=== PATIENT | female | born 2000 | race Caucasian/White ===

== ENCOUNTER 2022-01-14 14:23 | Emergency (ER) | payer BC, SELFPAY ==
[2022-01-14 14:29] VITALS: BP 138/84; PULSE 116; RESP 16; TEMP 37.7; O2SAT 98
--- NOTE | 2022-01-14 14:31 | ED.SKABFB ---
HPI - Skin/Abscess/Foreign Bdy General Chief complaint: Skin/Abscess/Foreign Body Stated complaint: lump under right arm sore throat Time Seen by Provider: 01/14/22 14:31 Source: patient Mode of arrival: ambulatory Limitations: no limitations History of Present Illness HPI narrative: Toro is a transitioning female to male that is complaining of a lump under the right arm in the axilla, headache, sore throat, low-grade temperature, and body aches x2 days. He reports that he has not felt any lumps in his breast and wears a binder to compress his breast. He denies any known exposure to anybody with COVID, flu, or strep. Related Data Home Medications Medication Instructions Recorded Confirmed testosterone cypionate 0.25 mg SUBCUT WEEKLY 01/14/22 01/14/22 Allergies Allergy/AdvReac Type Severity Reaction Status Date / Time No Known Allergies Allergy Verified 01/14/22 14:49 Review of Systems Review of Systems: Pertinent positives per HPI. Patient denies any rash, visual changes, dizziness, cough, runny nose,shortness of breath, chest pain, palpitations, nausea, vomiting, diarrhea, constipation, abdominal pain, or any urinary issues. PMFSH Comments At the time of my signature, I reviewed and agree with the nursing past medical, surgical, social, and family history. There is no relevant family history pertinent to the patient complaint. Exam Narrative: General: Well-developed, well nourished, in no apparent distress Head: Normocephalic, atraumatic Eyes: Pupils equally round and reactive to light bilaterally, EOM intact, sclera and conjunctive clear, no discharge, lids normal Ears: TMs intact and clear, ear canals clear, no drainage, grossly hearing normal. Nose: Nares patent, no discharge, no inflammation, no sinus tenderness. Mouth: Oropharynx without lesions or masses, good dentition, MMM. Oropharynx red with mild tonsillar enlargement Neck: Supple, trachea midline, no enlargement of anterior or posterior cervical nodes, no thyroid masses or goiter palpable. Cardio: Regular rate and rhythm, s1 and s2 normal, no murmur appreciated. Resp: Clear to auscultation bilaterally anteriorly and posteriorly, no rhonchi, rales, wheezing or rubs Lymph: No right axillary lymphadenopathy or mass palpable. Course Course Emergency Course: Portions of this record may have been created with voice recognition software. Level of Care: Express Care Visit Vital Signs Vital signs: Vital signs reviewed MDM - Skin/Abscess/Foreign Bdy MDM Narrative Medical decision making narrative: At the time of exam patient is resting comfortably on the exam table. COVID testing strep testing and influenza testing negative in the clinic. I suspect the patient has a viral syndrome and we discussed supportive measures for this. Recommend follow-up if symptoms persist/worsen, he voiced understanding of discharge instructions and agrees with treatment plan. Differential Diagnosis Differential diagnosis: Likely abscess of skin or subcutaneous tissue and other (Upper respiratory infection, influenza, strep, COVID, cyst) Discharge Plan Discharge Clinical Impression: Viral syndrome Patient Disposition: Home, Self-Care Condition: Stable Instructions: Antibiotic Form Additional Instructions: COVID testing, influenza testing, and strep testing negative in the clinic today. We will send strep for culture Increase fluids and stay well hydrated Tylenol/motrin for pain/fever Flonase and OTC antihistamines as directed Vicks vapor rub to open sinuses Sinus rinses for congestion Cepacol spray, cough drops, throat lozenges, warm tea with honey/lemon, gargle salt water to soothe throat BRAT diet for diarrhea Clear liquids x 24 hours then advance as tolerated for nausea/vomiting May return to the clinic if symptoms worsen Go to the ED if you develop dehydration, weakness, lethargy, shortness of breath, or chest pain. Follow up with penny
== END 2022-01-14 15:16 | disposition home or self-care (01) ==
PROVIDERS: Emergency Provider Nurse Practitioner Family
DX: B34.9 Viral infection, unspecified (principal); Z20.822 Contact with and (suspected) exposure to COVID-19
CPT/HCPCS: 87081; 87426; 87804; 87880; 99203; C9803; G0463

== ENCOUNTER 2024-06-07 15:36 | Emergency (ER) | payer SELFPAY ==
--- NOTE | ~2024-06-07 | XR_ITS ---
XR shoulder RT min 2V Ordering provider: Kahlil May MD History: . Rt. shoulder pain limited ROM, Lifting injury . Comparison: None. FINDINGS: BONES: No acute fracture or dislocation. JOINT SPACES: The acromioclavicular joint is normal. The glenohumeral joint is normal. SOFT TISSUES: Normal. IMPRESSION: No acute osseous abnormality right shoulder. Reviewed, dictated and finalized at location A.
[2024-06-07 15:42] VITALS: BP 139/79; PULSE 62; RESP 18; TEMP 36.9; O2SAT 99
--- NOTE | 2024-06-07 15:57 | ED.GENADULT ---
HPI - General Adult General Chief complaint: Extremity Injury, Upper Stated complaint: SHOULDER INJURY Time Seen by Provider: 06/07/24 15:57 Source: patient Mode of arrival: ambulatory Limitations: no limitations History of Present Illness HPI narrative: patient was at work and lifted the ladder at work 1 hour ago and it got heavy and he felt a pop in his right shoulder and had to drop the latter because of pain in his right shoulder. Now he can not lift it above 90? it hurts at rest to 5 and at movement it hurts a 9/10. Denies any paresthesias pain in his elbow wrist neck or elsewhere. Otherwise he is walking talking seeing and hearing fine without any nausea vomiting diarrhea problems eating or drinking shortness of breath cough fever any other complaints. Denies any previous injury to her right shoulder. Related Data Home Medications Medication Instructions Recorded Confirmed testosterone cypionate 200 mg/mL 0.35 mg subcut WEEKLY 01/14/22 06/07/24 intramuscular oil Allergies Allergy/AdvReac Type Severity Reaction Status Date / Time No Known Allergies Allergy Verified 06/07/24 16:03 Review of Systems Review of Systems: All systems reviewed & are unremarkable except as noted in HPI and below Exam Narrative: Patient appears no apparent distress. His neck is supple nontender his right shoulder is diffusely tender he can not raise it above 90? with regards to flexion and abduction. Neurovascular is intact. Deltoid nerve testing is normal there is no crepitation with range of motion of his right shoulder. Elbow wrist hand are normal. Radial ulnar and median nerve testing was normal. Course Vital Signs Vital signs: Vital Signs Oxygen Delivery Room Air 06/07/24 15:40 Temperature 36.9 C 06/07/24 15:42 Pulse Rate 62 06/07/24 17:30 Respiratory Rate 18 06/07/24 17:30 Blood Pressure 119/69 06/07/24 17:30 Pulse Oximetry 100 06/07/24 17:30 Oxygen Delivery Room Air 06/07/24 17:30 Medical Decision Making [facility] Narrative Medical decision making narrative: Patient was placed in Room # 3 History and physical was performed. right shoulder x-ray negative per radiologist Independent Historian: External Source Review: Differential Dx includes but not limited to: Medications were Reviewed: Independently Interpreted by me: Meds, treatment, ED course: Toradol 30 mg IM sling Social Situation Impacting Patients Care: Shared decision Making: evaluation discussed all questions were asked and answered and patient agreed with the plan. Discussed with Dr. BRAUN DIAGNOSIS: Right shoulder sprain DISPOSITION: discharged home CONDITION AT DISCHARGE: stable Vital Signs Vital Signs: Vital Signs Oxygen Delivery Room Air 06/07/24 15:40 Temperature 36.9 C 06/07/24 15:42 Pulse Rate 62 06/07/24 17:30 Respiratory Rate 18 06/07/24 17:30 Blood Pressure 119/69 06/07/24 17:30 Pulse Oximetry 100 06/07/24 17:30 Oxygen Delivery Room Air 06/07/24 17:30 Discharge Plan Discharge Clinical Impression: Other sprain of right shoulder joint, initial encounter Patient Disposition: Home, Self-Care Condition: Stable Instructions: Shoulder Sprain (ED) Additional Instructions: splint for comfort Tylenol and ibuprofen as needed for pain. Follow-up with primary care provider Next week. Return if you get worse or develops any new symptoms. Prescriptions: No Action testosterone cypionate 200 mg/mL oil 0.35 mg subcut WEEKLY Follow-up/Referrals: UNKNOWN,DOCTOR [Primary Care Provider] - Time of Disposition: 17:11
[2024-06-07] MEDS: KETOROLAC 30 MG/ML VIAL (*BKC) IM (16:20)
--- NOTE | 2024-06-07 17:00 | PC.NURSE ---
PT IS SITTING UP ON STRETCHER AWAITING RESULTS AND ERP DECISION. PT REPORTS PAIN HAS IMPROVED POST MEDICATION AND SLING. NAD NOTED. WILL CONTINUE TO MONITOR.
[2024-06-07 17:30] VITALS: BP 119/69; PULSE 62; RESP 18; O2SAT 100
== END 2024-06-07 17:30 | disposition home or self-care (01) ==
PROVIDERS: Emergency Provider Emergency Medicine
DX: S43.401A Unspecified sprain of right shoulder joint, initial encounter (principal); X50.0XXA Overexertion from strenuous movement or load, initial encounter; Y99.0 Civilian activity done for income or pay
CPT/HCPCS: 73030; 96372; 99283; J1885